=== PATIENT | female | born 1985 | race Caucasian/White ===

== ENCOUNTER → 2019-02-09 | Outpatient (CLI) | payer BC, SELFPAY ==
[2016-09-24 12:27] VITALS: BMI 24.7
[2019-02-19 16:41] LABS: HPV HC, High Risk Negative (Negative)
== END | disposition home or self-care (01) ==
LOC: LABSPEC 14:12
PROVIDERS: Visit Provider Obstetrics & Gynecology
DX: Z12.4 Encounter for screening for malignant neoplasm of cervix (principal)
CPT/HCPCS: 87624; 88175; G0145

== ENCOUNTER → 2020-05-24 11:56 | Outpatient (CLI) | payer BC, SELFPAY ==
[2016-09-24 12:27] VITALS: BMI 24.7
[2020-05-24 13:55] LABS: Absolute Lymphocyte Count 1.26 X10^3/uL (0.83-4.51); Absolute Neutrophil Count 5.2 X10^3/uL (2.0-7.7); Basophil# 0.04 X10^3/uL; Basophil% 0.6 % (0-1); Eosinophil# 0.02 X10^3/uL; Eosinophils% 0.3 % (0-5); Hematocrit 41.3 % (37-47); Hemoglobin 13.9 g/dL (12.0-15.0); Lymphocyte # 1.26 X10^3/ul (4.0); Lymphocyte % 17.9 % (19-41); Mean Corp Hgb Conc 33.7 g/dL (32-36); Mean Corpuscular Hgb 30.8 pg (27.0-32.0); Mean Corpuscular Volume 91.4 fL (81-99); Mean Platelet Vol. 9.9 fl (6.2-12.0); Monocyte# 0.52 X10^3/uL; Monocyte% 7.4 % (0-10); NRBC Flagged by Analyzer 0 % (0-5); Neutrophil # 5.18 X10^3/uL (2.7-7.7); Neutrophil % 73.7 % (47-70); Platelet Count 282 K/mm3 (150-450); RBC Distribution Width CV 12.4 % (11.6-14.6); RBC Distribution Width SD 41.8 fl (35.1-43.9); Red Blood Count 4.52 M/mm3 (4.2-5.4)
[2020-05-24 14:00] LABS: Color, Urine Yellow (Yellow); Glucose, Dipstick Normal (Normal); Ketone-Dipstick Negative (Negative); Leukocyte Esterase-Dipstick 500 /ul (Negative); Nitrite-Dipstick Negative (Negative); Occult Blood-Urine Negative /ul (Negative); Protein-Dipstick Negative (Negative); Urine Bilirubin Dipstick Negative (Negative); Urine Clarity Sl. Cloudy (Clear); Urine Urobilinogen Normal (Normal)
[2020-05-24 14:18] LABS: Amphetamine Urine VISTA NEGATIVE (<1000 ng/mL); Barbiturate Urine VISTA NEGATIVE (< 200 ng/mL); Benzodiazepine Urine VISTA NEGATIVE (< 200 ng/mL); Cocaine Urine VISTA NEGATIVE (< 300 ng/mL); Ecstacy Urine VISTA NEGATIVE (< 500 ng/mL); Methadone Urine VISTA NEGATIVE (< 300 ng/mL); PCP Urine VISTA NEGATIVE (< 25 ng/mL); THC Urine VISTA NEGATIVE (< 50 ng/mL); Vista UDS pH Range 6
[2020-05-24 14:44] LABS: HIV - WCH Non-Reactive (Nonreactive); Hepatitis B Surface Antigen Non-Reactive (Nonreactive); Hepatitis C Antibody Non-Reactive (Nonreactive)
[2020-05-25 01:34] LABS: Prenatal RPR NONREACTIVE (NONREACTIVE)
[2020-05-27 03:06] LABS: Chlamydia By Nucleic Acid AMP Negative (Negative)
[2020-05-27 14:05] LABS: Gonococcus By Nucleic Acid AMP Negative (Negative)
== END ==
PROVIDERS: Visit Provider Obstetrics & Gynecology
DX: Z11.3 Encounter for screening for infections with a predominantly sexual mode of transmission (principal)
CPT/HCPCS: 36415; 80307; 81002; 84443; 85025; 86703; 86762; 86803; 87340; 87491; 87591

== ENCOUNTER 2020-06-09 19:29 | Emergency (ER) | payer BC, SELFPAY ==
[2020-06-09 19:30] VITALS: BP 135/86; PULSE 76; RESP 14; TEMP 36.3; O2SAT 98; BMI 20.7
[2020-06-09 20:27] LABS: Absolute Lymphocyte Count 1.36 X10^3/uL (0.83-4.51); Absolute Neutrophil Count 10.1 X10^3/uL (2.0-7.7); Basophil# 0.03 X10^3/uL; Basophil% 0.2 % (0-1); Eosinophil# 0.01 X10^3/uL; Eosinophils% 0.1 % (0-5); Hematocrit 41.3 % (37-47); Hemoglobin 14.3 g/dL (12.0-15.0); Lymphocyte # 1.36 X10^3/ul (4.0); Lymphocyte % 11.3 % (19-41); Mean Corp Hgb Conc 34.6 g/dL (32-36); Mean Corpuscular Hgb 30.9 pg (27.0-32.0); Mean Corpuscular Volume 89.2 fL (81-99); Mean Platelet Vol. 9.5 fl (6.2-12.0); Monocyte# 0.58 X10^3/uL; Monocyte% 4.8 % (0-10); NRBC Flagged by Analyzer 0 % (0-5); Neutrophil # 10.05 X10^3/uL (2.7-7.7); Neutrophil % 83.3 % (47-70); Platelet Count 302 K/mm3 (150-450); RBC Distribution Width CV 12.2 % (11.6-14.6); RBC Distribution Width SD 39.8 fl (35.1-43.9); Red Blood Count 4.63 M/mm3 (4.2-5.4); White Blood Count 12.1 K/mm3 (4.4-11.0)
[2020-06-09 20:38] LABS: Anion Gap 7 (5-15); BUN 6 mg/dL (7-18); BUN/Creat Ratio 10.2 RATIO (10-20); Calcium,Total 9.2 mg/dL (8.5-10.1); Chloride 104 mmol/L (98-107); Creatinine, Serum 0.59 mg/dL (0.55-1.02); EST Glomerular Filtration Rate 122 mL/min (>60); Est Glom Filt Rate - Afr Amer 148 mL/min (>60); Estimated Creatinine Clearance 113.83 ml/min; Glucose 87 mg/dL (74-106); Potassium 3.4 mmol/L (3.5-5.1); Sodium Level 134 mmol/L (136-145)
[2020-06-09] MEDS: 0.9% Normal Saline 1,000 ML 999 ML IV (21:03)
[2020-06-09] MEDS: DiphenhydrAMINE 50 MG/ML Syringe 25 MG IV (21:03)
[2020-06-09] MEDS: Metoclopramide 10 MG/2 ML Vial IV (21:04)
--- NOTE | 2020-06-09 22:13 | ED.VISSUMM ---
- ER Visit Summary Date of Service: 06/09/20 Chief Complaint: Headache History of Present Illness: The patient is a 35 F who presents with a headache that began today. Patient states the pain is similar to prior migraines. Patient admits to some nausea and vomiting. Patient states she is unable to keep anything down. Patient also admits to some photophobia. Patient denies any fevers or chills. Patient admits to some numbness in her hands bilaterally but denies any weakness. Patient denies any visual changes or scotoma. Patient admits to subjective chills but denies any fevers. Patient is approximately 10 weeks . Physical Examination: Vital signs are stable. Patient is afebrile. Patient is in no acute distress. Oral mucosa is pink and moist. Neck is supple. Trachea is midline. There is no JVD noted. Heart was regular rate and rhythm. Lungs are clear and equal bilaterally. Abdomen is soft. Bowel sounds are normal. There is no tenderness. There is no rebound or guarding noted. Skin is warm dry. Cranial nerves II through XII are intact. There are no focal motor or sensory deficits noted. Extremities are intact. There is no calf tenderness or edema. Test Results: CBC and basic metabolic profile were obtained and were within normal limits. Emergency Department Course and Treatment: Patient was given IV fluids, Reglan, and Benadryl. Patient states she is feeling better. Patient was given a dose of Toradol. [id number] ultrasound was obtained. There is a single live intrauterine . There is good heart movement noted. Patient was reassured. Patient was instructed to rest in a dark quiet room. Patient was instructed to follow-up with her primary care physician and [facility] in 5 to 7 days. Patient understood and was agreeable with the plan. All questions were answered. Disposition: Discharge home Impression: 1. Migraine headache 2. Intrauterine This note was generated with [employer] dictation software. It may contain incorrect words, spelling, and punctuation that were not noted in review of the chart prior to signing ED Disposition - Plan for ED Patient: Disposition: Home or Assisted Living Diagnosis: Migraine headache, Instructions: ED, Migraine (Classical) Referrals: Care Physician,No Primary [Primary Care Provider] -
[2020-06-09] MEDS: Ketorolac 30 MG/ML Syringe IV (22:25)
== END 2020-06-09 22:35 | disposition home or self-care (01) ==
PROVIDERS: Emergency Provider Emergency Medicine
DX: G43.909 Migraine, unspecified, not intractable, without status migrainosus (principal); O99.351 Diseases of the nervous system complicating pregnancy, first trimester; Z3A.10 10 weeks gestation of pregnancy
CPT/HCPCS: 80048; 85025; 96374; 96375; 99282; J7030; A4216

== ENCOUNTER → 2020-10-10 10:41 | Outpatient (CLI) | payer BC, SELFPAY ==
[2020-10-10 13:47] LABS: Hematocrit 33.8 % (37-47); Hemoglobin 11.2 g/dL (12.0-15.0); Mean Corp Hgb Conc 33.1 g/dL (32-36); Mean Corpuscular Hgb 31.1 pg (27.0-32.0); Mean Corpuscular Volume 93.9 fL (81-99); Mean Platelet Vol. 9.7 fl (6.2-12.0); Platelet Count 233 K/mm3 (150-450); RBC Distribution Width CV 13.3 % (11.6-14.6); RBC Distribution Width SD 46.1 fl (35.1-43.9); White Blood Count 7.7 K/mm3 (4.4-11.0)
[2020-10-10 13:48] LABS: Glucose Challenge Gest 1H 50g 74 mg/dL (70-140)
== END ==
PROVIDERS: Visit Provider Student in an Organized Health Care Education/Training Program
DX: Z34.82 Encounter for supervision of other normal pregnancy, second trimester (principal)
CPT/HCPCS: 36415; 82950; 85027

== ENCOUNTER → 2020-12-12 13:34 | Outpatient (CLI) | payer BC, SELFPAY | PROVIDERS: Visit Provider Student in an Organized Health Care Education/Training Program | DX: Z36.85 Encounter for antenatal screening for Streptococcus B (principal) | CPT/HCPCS: 87081 ==

== ENCOUNTER → 2020-12-20 13:55 | Outpatient (CLI) | payer BC, SELFPAY | PROVIDERS: Referring Provider Student in an Organized Health Care Education/Training Program; Visit Provider Student in an Organized Health Care Education/Training Program | DX: Z03.818 Encounter for observation for suspected exposure to other biological agents ruled out (principal) | CPT/HCPCS: 87635; C9803; U0002 ==

== ENCOUNTER 2020-12-31 18:55 | Inpatient (IN) | payer BC, SELFPAY ==
[2020-12-31 19:08] VITALS: BMI 25.3
[2020-12-31 19:51] VITALS: BP 129/66; PULSE 101; PULSE 106; TEMP 36.9; O2SAT 98
[2020-12-31] MEDS: Lactated Ringers 1,000 ML 50 ML IV (19:55)
[2020-12-31 19:56] LABS: Absolute Lymphocyte Count 0.78 X10^3/uL (0.83-4.51); Absolute Neutrophil Count 7.7 X10^3/uL (2.0-7.7); Basophil# 0.03 X10^3/uL; Basophil% 0.3 % (0-1); Eosinophil# 0.05 X10^3/uL; Eosinophils% 0.5 % (0-5); Hematocrit 36.3 % (37-47); Hemoglobin 12.6 g/dL (12.0-15.0); Lymphocyte # 0.78 X10^3/ul (0.83-4.51); Lymphocyte % 8.5 % (19-41); Mean Corp Hgb Conc 34.7 g/dL (32-36); Mean Corpuscular Hgb 32.4 pg (27.0-32.0); Mean Corpuscular Volume 93.3 fL (81-99); Mean Platelet Vol. 10.3 fl (6.2-12.0); Monocyte# 0.62 X10^3/uL; Monocyte% 6.7 % (0-10); NRBC Flagged by Analyzer 0 % (0-5); Neutrophil # 7.69 X10^3/uL (2.7-7.7); Neutrophil % 83.3 % (47-70); Platelet Count 205 K/mm3 (150-450); RBC Distribution Width CV 13.4 % (11.6-14.6); RBC Distribution Width SD 46.1 fl (35.1-43.9); Red Blood Count 3.89 M/mm3 (4.2-5.4); White Blood Count 9.2 K/mm3 (4.4-11.0)
[2020-12-31] MEDS: miSOPROStol 25 MCG TABLET PO (20:02)
--- NOTE | 2020-12-31 20:19 | PCM.HP.BLA ---
History and Physical Date of Admission: 12/31/20 ACOG ANTEPARTUM RECORD - HISTORY AND PHYSICAL (12/31/2020) Name: DARCI SALAZAR History of this : This is a 35 year old [id number] presents at 39 wks + 1 days gestation for induction for oligohydramnios. OB Physician: Vicki Blanco MD 's Physician: Amado ...................................................................... : 1985 Age: 35 Address: [address] [place] [address] Phone: (H) [phone] (O) [phone] Insurance Carrier: alooma Zakazaka [facility] [id number] Emergency Contact: TRAVIS ROSS [phone] ...................................................................... Final HARLEEN: 01/06/21 By Ultrasound: 11 weeks 4 days PARITY: (G-Total Pregnancies P-Fullterm,Premature,Induced AB,Spont AB, Ectopics, Multiple,Living) HARLEEN CONFIRMATION: By LMP: 04/01/20 Initial Exam: 01/06/21 By First Ultrasound Exam: 01/06/21 Final HARLEEN: 01/06/21 OB PROBLEM LIST: ALLERGIC to LATEX! AMA Declines Quad Screen and cfDNA test Declines Carrier Screening IUGR Oligohydramnios with 3rd Past hx of anxiety. EPDS on 05/24/2020 = 5. Plans to breast feed Undecided about epidural VELAMENTOUS CORD INSERTION ALLERGIES: Latex ? itching Latex Itching of skin NKDA MEDICATIONS: 28 mg iron-800 mcg tablet One tablet by mouth once daily SOCIAL HISTORY: Smoking - used to smoke but quit Alcohol Use - denies drinking Diet - balanced Diet Lifestyle - Exercise - regular Employer - Stays at home Job Description - Illicit Drug Use - denies use of street drugs Sexual Activity - Residence - lives with Place of - [place], SONNY Spouse-Sig Other Name - LUIS Emily Spouse-Sig Other Occupation - [employer] Spouse-Sig Other Phone No - [phone] cell Children Name(s) - Josef Cruz () '14, Elio (SHM '17) PRIOR DELIVERY HISTORY DEL DATE GEST LAB WT LB WT OZ TYPE ANES LABOR TX 03 May 28 39 10 5 11 Vag Epidural No Oct 04 40 6 6 14 Vag Epidural No Jul 01 40 5 6 11 Vag Epidural No ANTEPARTUM FLOW CHART VISIT GE RTC FU F F NV U U DATE WK MD WKS HT PN HR M SS BP ED WT NV GL D EF ST __ ____ ___ __ __ ___ __ __ __ ___ __ __ __ ___ __ December JMW + + 114/60 sl 145 - - 11 May 38 CM 3 38 V U+ + 122/74 0 148 - - 1 50 -3 19 December 37 CM 1 37 V + + 118/76 sl 147 - - Nov 36 CM 1 36 V + + 122/70 sl 147 - - 20 Nov 35 CM 1 + + 122/70 0 144 ne ne Nov 34 CM 2 34 V + + 102/74 0 143 tr - 23 Oct 31 CM 2 + + 124/72 0 140 - - 09 Oct 29 CM 2 29 + + 112/68 0 138 - - Sep 27 CM 2 27 + + 104/68 0 136 ne ne Sep 09 SHM 4 24 + + 110/72 0 132 - - 29 Aug 05 SHM 4 + + 108/78 0 128 - - 02 Aug 01 SHM 4 + O 120/76 0 126 - - 04 Jun 28 SHM 4 + US 112/64 0 124 - - ANTEPARTUM NOTE(S): Dec 29 2020: Dec 26 2020: Dec 19 2020: Dec 12 2020: Dec 05 2020: Nov 28 2020: Informed of GBS and LARC at next visit Nov 07 2020: Oct 24 2020: Oct 10 2020: GCT today Sep 12 2020: see note Aug 15 2020: nausea better, possible varicose vein Jul 19 2020: see note Jun 21 2020: COMPREHENSIVE ANTEPARTUM NOTE(S): Dec 29 2020: Darci is here for NST following delay of labor induction by WP. Baby active. Some kicks can hurt. Feeling well. Disappointed in wait for L. NST explained and read as reactive by Dr CHARLES. SHIMA. Dec 26 2020: Cytotec IOL scheduled for 12/29/20. COVID test negative 12/20/20. Reporting runs of ctx's, then will stop. Good FM. No leaking flulid. No spotting. BPP 03/25. ROSANNA wnl. Dec 26 2020: 38/3w. FGR based on AC 6%tile. EFW increased to 11.6%tile. Delivery still indicated based on FGR with low AC. BPP 8/8 today with normal cord dopplers. Velamentous cord insertion, fundal. Resolved low lying placenta. Planned for induction 12/29. F/u 3w PP. CM Dec 19 2020: H taken to OB. tkg Dec 19 2020: Darci is here at 37.3 w gest for US and appt. Feeling well. Baby active. Eager for induction and baby. Some BH contr at home at int. Ring tight but minimal edema otherwise. DRC. Dec 19 2020: 37/3w visit. IUGR - BPP today 03/25 with normal cord dopplers. Will need BPP Friday. Same testing with growth next week 12/26. Planned IOL on 12/29. Velamentous cord insertion. Resolved low lying placenta. F/u 1w. CM Dec 12 2020: Darci is here for cord dopplers, BPP, PNV. BPP 03/25. Reporting decreased FM this morning. She would like to discuss a Tubal. GBS, LARC (declines) today. Per Dr. Aysha Chandler, Cytote Induction scheduled for 7 AM, December 29 by Shi. Consent signed. Induction literature given. Induction papers faxed to OB. Instructed to pre-register @ [facility], # provided. kbm Dec 12 2020: 36/3w. Velamentous cord insertion. IUGR EFW 6%, AC <3%. Cord dopplers normal today. Planned for induction of labor 38/6w. Cytotec. 12/29 AM. WOuld like BTL if she has c/s. F/u Friday BPP, next week BPP with cord dopplers. CM Dec 05 2020: Darci is here folloiwng US. States she is feeling well. Had good FM during US. Presently, no edema noted. No concerns today. Urine neg/neg. LSS Dec 05 2020: 35/3w visit. Velamentous cord insertion. IUGR: AC <3, EFW 6.4%tile. Cord dopplers done today and wnl. Will do twice weekly BPP, once weekly CD. Plan for induction 38w or sooner if cord dopplers are abnormal. F/u 1w CM Nov 28 2020: Darci is here for her PNV. Good FM. No edema present. Denies questions or concerns. GBS and LARC at next visit. MK Nov 28 2020: 34/3w visit. Velamentous cord insertion - BPP 03/25. Growth next week. Continue weekly BPPs. HC lagging on last growth. Declined MFM. F/u 2w CM Nov 07 2020: US to check placenta, growth and velamentous cord insertion. Nov 07 2020: 31/3w visit. Resolved previa. Velamentous cord insertion. Growth overall AGA, HC lagging by 1w, BPD by 3w. Similar in last US. Will start once weekly BPP. Growth in 4w. Pt declined MFM consult. States her prior babies have had small heads as well. CM Oct 24 2020: 29/3w visit. Velamentous cord insertion. Discussed again today, cord insertion was reviewed on US images and is fundal. Will plan for US next visit with TV to assess growth and placental positioning. f/u 2w. CM Oct 10 2020: Darci is here with SO following US. Also completed GCT today. Expressing concern with US results. Having good FM. Also, has noticed 2 buldging vericose veins posterior right knee. Does wear compression socks. Occ they do get warm and the area gets red. Presently are not painful. No edema noted. Urine neg/neg. LSS Oct 10 2020: 27/3w visit. Velamentous cord insertion/low lying placenta. Growth in4w. Discussed at length. Varicose vein right calf - discussed warning signs of VTE, continue wearing compression stockings. F/u 2w. cm Sep 12 2020: Darci is here for visit. She relates that she is having issues with nausea again. She has tried Unisom and Pepcid. The Pepcid seemed to help but she is taking Unisom at night and wonders if that is also helping. She is advised that the Pepcid may be helping more but can take the Unisom if she wants or just take the Pepcid for a week to see if this helps. Call if nausea persists. Encoura Sep 12 2020: Pt with questions and concerns about vasa previa after reading more about velamentous cord insertion. Reviewed her recent US findings with no evidence of vasa previa. Will plan repeat US at next visit to evaluated placenta, cord, growth, ROSANNA. PTL, ROM, FM precautions. Aug 15 2020: Darci is here with her SO for a PNV. Starting to feel FM. No edema. Nausea is continuing to get better. Reports chapped and dry lips are back and worse, wonders if she can get a referral to a instructor of spanish. Complains of bulge in 2 places behind her R knee that are slightly painful. She is worried these are varicose veins and would like them looked at. No other concerns expressed. MK Aug 15 2020: RLE varicosity present. Recommend compression stockings, ASA 81mg r/b reviewed, pt considering. US AGA, EFW 36.2%, sex unknown (to patient, knows), low lying placenta at 0.8cm from os with velamentous cord insertion. Reviewed increased risk for cord compression with associated growth restriction, risk for stillbirth, however, overall low risks. Plan growth, placentation US qmonth starting Jul 19 2020: Darci complains of off and on nausea persisting. She is stopped the Unisom and then restarted and wanting to make sure that is ok? Advised Unisom is fine to take. Reviewed medications for stomach upset. Mylanta, Pepcid also may help. Declines carrier and genetic screening testing. Encouraged Influenza vaccine. LMT Jun 22 2020: TELEHEALTH NOB VISIT, DURATION 30 MINUTES. Darci is a 35 year old with an HARLEEN of 01/06/2021, current GA is 11 w 5 d. She resides with her , LUIS, and their three children. All of her children were delivered by . Her last labor was induced d/t Oligohydramnios. Past history updated. Delivery at [facility] is planned, she is undecided about an epidural, and she will breastfeed. Darci Jun 21 2020: Darci is here for her PNV. Reports she doing well with no complaints. No edema present to day. Reports nausea has stopped 2 days ago. Medications and allergies reviewed today. LJW Jun 21 2020: US today c/w dates. HARLEEN 01/06/21. Nausea improving. c/o severe lip chapping. No cracks or fissues or erythema or flaking on exam - however chap stick applied. I recommend coconut oil or beeswax only with layer of Aquafor lip balm on top. Protein with each meal, Vitamin C and increase zinc for lip healing. She notes sx emerged in February when son was admitted to [facility] and she wore a REVIEW OF SYSTEMS: GENERAL - Denies fever, or chills SKIN - Denies rash, new skin lesions, or change in moles EYES - Denies blurred vision, or change in visual acuity EARS - Denies ear pain, or difficulty hearing NOSE - Denies nasal congestion, discharge, or bleeding MOUTH - Denies sore throat, or difficulty swallowing NECK - Denies pain or swelling RESPIRATORY - Denies shortness of breath, cough, wheezing CARDIOVASCULAR - Denies palpitations, chest pain, orthopnea, PND, peripheral edema, syncope or claudication GASTROINTESTINAL - Denies nausea, vomiting, diarrhea, constipation, Denies abdominal pain, melena and or bright red blood GENITOURINARY - Denies dysuria, frequency of urination, urgency, or hesitancy MUSCULOSKELETAL - Denies joint or muscle pain, or back pain NEUROLOGICAL - Denies localized numbness, weakness, or tingling PSYCHIATRIC - Denies depression, anxiety, substance abuse or suicide attempts ENDOCRINE - Denies heat or cold intolerance, weight loss or gain, increasing thirst HEMATO-IMMUNOLOGIC - Denies easy bruising, bleeding, oral ulcerations or recurrent infections GENETICS SCREENING: Age 35+ years: No Thalassemia: No Neural Tube Defect: No Down Syndrome: No DAYNE-SACHS: No Sickle Cell Disease: No Hemophilia: No Musc. Dystrophy: No Cystic Fibrosis: No-declines screening Mike Chorea: No Mental Retardation: No Fragile X: No Other genetic: No Other defects: No SABs/still births: No Drugs since LMP: No INFECTION HISTORY: High risk AIDS: No High risk Hepatitis: No Exposed to TB: No Exposed to Herpes: No Rash/viral illness since LMP: No History of STD: No Comments: + Chlamydia MENSTRUAL HISTORY: *Menses Amount/Duration: 5 daysMenses Regularity: RegularMenarche (Age Onset): 12* PAST SUMMARY: PARITY: 1. Total Pregnancies............ 4 2. Full Term Pregnancies........ 3 3. Premature.................... 0 4. Abortions - Induced.......... 0 5. Abortions - Spontaneous...... 0 6. Ectopics..................... 0 7. Multiple Births.............. 0 8. Living Children.............. 3 PAST #1: Date of :.................. 05/20/11 Gestation Weeks:................ 39 Length of labor(hours):......... 10 Sex:............................ F Weight-lbs:............... 5 Weight-oz:................ 11 Type of Delivery:............... Vag Type of Anesthesia:............. Epidural Place of Delivery:.............. [place] Treatment of Labor?:.... No Comment: PAST #2: Date of :.................. 07/04/14 Gestation Weeks:................ 40 Length of labor(hours):......... 5 Sex:............................ M Weight-lbs:............... 6 Weight-oz:................ 11 Type of Delivery:............... Vag Type of Anesthesia:............. Epidural Place of Delivery:.............. [place] Treatment of Labor?:.... No Comment: PAST #3: Date of :.................. 09/24/16 Gestation Weeks:................ 40 Length of labor(hours):......... 6 Sex:............................ M Weight-lbs:............... 6 Weight-oz:................ 14 Type of Delivery:............... Vag Type of Anesthesia:............. Epidural Place of Delivery:.............. [place] Treatment of Labor?:.... No Comment: IOL, OLIGOHYDRAMNIOS PHYSICAL EXAMINATION General Appearence: 35 yo female in no acute distress Vital Signs: AF, VSS Heart: RRR without rubs or gallops Lungs: CTA x 2 Breasts: deferred Abdomen: gravid Pelvis: Cervix: Presentation: cephalic Station: -2 Fetus: Size: AGA Movement: present Heart: present LAB TEST(S) ORDERED SINCE:04/11/20 05/27/2020 CHLAMYDIA/GC MONICA APTIMA 05/25/2020 RPR 05/24/2020 URINE DRUG SCREEN (VISTA) 05/24/2020 URINALYSIS, ROUTINE (DIPSTICK) 05/24/2020 THYROID STIM HORMONE (TSH) 05/24/2020 RUBELLA IGG 05/24/2020 T AND S-NO CHARGE W/PNP 05/24/2020 HIV - [facility] 05/24/2020 HEPATITIS C ANTIBODY 05/24/2020 HEPATITIS B SURFACE ANTIGEN 05/24/2020 CBC W/DIFF, AUTOMATED 12/31/2020 CBC W/DIFF, AUTOMATED 12/20/2020 COVID 19, MONICA [facility](RT COLLECT) 12/15/2020 RULE OUT BETA STREP (GRP. B) 10/10/2020 GLUCOSE CHALLENGE GEST 1H 50G 10/10/2020 CBC-COMPLETE BLOOD CNT NO DIFF == ==== Order Observation Description Value Ref_Range A* Site == ==== CBC W/DIFF, AUT NOTE MURRAY CBC W/DIFF, AUT WBC 9.2 K/mm3 4.4-11.0 ML CBC W/DIFF, AUT RBC 3.89 M/mm3 4.2-5.4 L ML CBC W/DIFF, AUT HGB 12.6 g/dL 12.0-15.0 ML CBC W/DIFF, AUT HCT 36.3 37-47 L ML CBC W/DIFF, AUT MCV 93.3 fL 81-99 ML CBC W/DIFF, AUT MCH 32.4 pg 27.0-32.0 H ML CBC W/DIFF, AUT MCHC 34.7 g/dL 32-36 ML CBC W/DIFF, AUT RDW CV 13.4 11.6-14.6 ML CBC W/DIFF, AUT RDW SD 46.1 fl 35.1-43.9 H ML CBC W/DIFF, AUT PLT 205 K/mm3 150-450 ML CBC W/DIFF, AUT MPV 10.3 fl 6.2-12.0 ML CBC W/DIFF, AUT NEUT% 83.3 47-70 H ML CBC W/DIFF, AUT LY% 8.5 19-41 L ML CBC W/DIFF, AUT MONO% 6.7 0-10 ML CBC W/DIFF, AUT EO% 0.5 0-5 ML CBC W/DIFF, AUT BASO% 0.3 0-1 ML CBC W/DIFF, AUT IG% 0.700 0.0-0.9 ML IG% - Immature Granulocytes (promyelocytes, myelocytes and metamyelocytes) > 1% indicates that a LEFT SHIFT is Present. CBC W/DIFF, AUT ABSOLUTE NEUT 7.7 X10 3/uL 2.0-7.7 ML CBC W/DIFF, AUT ABSOLUTE LYMPH 0.78 X10 3/uL 0.83-4.51 L ML CBC W/DIFF, AUT NUCLEATED RBC 0 0-5 ML COVID 19, MONICA NOTE MURRAY COVID 19, MONICA COVID-19,MONICA Not Detected Not Detect ML Normal Reference Range: Not Detected Method:(RT-PCR) real-time reverse transcriptase PCR [employer] Instrument *The Food and Drug Administration (FDA) has issued an Emergency Use Authorization (EAU) for the 6APT SARS-CoV-2 Assay for the rapid detection of the virus that causes COVID-19. This test has been validated, but the FDAs independent review of this validation is pending. *Negative results do not preclude infection and should not be used as the sole basis for treatment or patient management. Optimum specimen types and timing for peak viral levels during infections caused by SARS-CoV-2 have not been determined. Collection of multiple specimens from the same patient may be necessary to detect the virus. The possibility of a false negative result should be considered if the patient has clinical presentation or has had recent exposure. RULE OUT BETA S NOTE MURRAY GLUCOSE CHALLEN NOTE MURRAY GLUCOSE CHALLEN GLU GEST 50G 1H 74 mg/dL 70-140 ML CBC-COMPLETE BL NOTE MURRAY CBC-COMPLETE BL WBC 7.7 K/mm3 4.4-11.0 ML CBC-COMPLETE BL RBC 3.60 M/mm3 4.2-5.4 L ML CBC-COMPLETE BL HGB 11.2 g/dL 12.0-15.0 L ML CBC-COMPLETE BL HCT 33.8 37-47 L ML CBC-COMPLETE BL MCV 93.9 fL 81-99 ML CBC-COMPLETE BL MCH 31.1 pg 27.0-32.0 ML CBC-COMPLETE BL MCHC 33.1 g/dL 32-36 ML CBC-COMPLETE BL RDW CV 13.3 11.6-14.6 ML CBC-COMPLETE BL RDW SD 46.1 fl 35.1-43.9 H ML CBC-COMPLETE BL PLT 233 K/mm3 150-450 ML CBC-COMPLETE BL MPV 9.7 fl 6.2-12.0 ML CHLAMYDIA/GC NA NOTE MURRAY CHLAMYDIA/GC NA CHLAMY,NUC ACID Negative Negative LC CHLAMYDIA/GC NA GC BY NUC ACID Negative Negative LC Performed at: = - [facility] [id number] Spare Hand: Brenna Henao MD, Phone: [phone] RPR NOTE MURRAY RPR RPR NONREACTIVE NONREACTIVE ML Reason for Type AND Screen/Red Cells: Surgery? [facility]~[address] [place], [address]~ T AND BLOOD TYPE GEL A POSITIVE N ML T AND AB SCREEN GEL NEGATIVE N ML HEPATITIS C ANT NOTE MURRAY HEPATITIS C ANT HEPATITIS C AB Non-Reactive Nonreactive ML Non Reactive: < 0.8 Equivocal: >/= 0.8 to < 1.0 Reactive: >/= 1.0 The CDC recommends that a reactive/equivocal HCV antibody result be followed up by the HCV Nucleic Acid Amplification test ([id number]) HEPATITIS B MOLLY NOTE MURRAY HEPATITIS B MOLLY HEPB SURFACE AG Non-Reactive Nonreactive ML RUBELLA IGG NOTE MURRAY RUBELLA IGG RUBELLA IGG 203.0 IU/mL ML Antibody results Interpretation of Immune Status < 5 IU/ml Presumed Non-immune 5 - < 10 IU/ml Equivocal > or = 10 IU/ml Presumed Immune HIV - [facility] NOTE MURRAY HIV - [facility] HIV - [facility] Non-Reactive Nonreactive ML URINE DRUG SCRE NOTE MURRAY URINE DRUG SCRE TO BE CONFIRMED ML CONFIRMATORY TESTING FOR ALL POSITIVE URINE DRUG SCREEN RESULTS WILL ONLY BE SENT OUT UPON PHYSICIAN ORDER. VISTA Urine Drug Screen methods provide only preliminary analytical test results. A more specific alternate chemical method must be used in order to obtain a confirmed analytical result. Gas chromatography/mass spectrometery (GC/MS) is the preferred confirmatory method. Clinical consideration and professional judgement should be applied to any drug of abuse test result, particularly when preliminary positive results are used. URINE TCA TESTING MUST BE ORDERED SEPARATELY. USE TEST MNEMONIC: UTCA URINE DRUG SCRE VISTA UDS PH 6 ML URINE DRUG SCRE AMPHETAMINES NEGATIVE <1000 ng/mL ML URINE DRUG SCRE BARBITIURATES NEGATIVE < 200 ng/mL ML URINE DRUG SCRE BENZODIAZIPINE NEGATIVE < 200 ng/mL ML URINE DRUG SCRE COCAINE NEGATIVE < 300 ng/mL ML URINE DRUG SCRE ECSTACY NEGATIVE < 500 ng/mL ML URINE DRUG SCRE METHADONE NEGATIVE < 300 ng/mL ML URINE DRUG SCRE OPIATES NEGATIVE < 300 ng/mL ML URINE DRUG SCRE PCP NEGATIVE < 25 ng/mL ML URINE DRUG SCRE THC NEGATIVE < 50 ng/mL ML THYROID STIM HO NOTE MURRAY THYROID STIM HO TSH 2.20 uIU/mL 0.358-3.74 ML URINALYSIS, ROU NOTE MURRAY URINALYSIS, ROU COLOR Yellow Yellow ML URINALYSIS, ROU CLARITY Sl. Cloudy Clear ML URINALYSIS, ROU GLUCOSE, UR Normal mg/dl Normal ML URINALYSIS, ROU BILIRUBIN URINE Negative mg/dL Negative ML URINALYSIS, ROU KETONE UR Negative mg/dl Negative ML URINALYSIS, ROU SP.GR. DIPSTX 1.010 1.002-1.030 ML URINALYSIS, ROU PH UR 7.0 5.0 - 8.0 ML URINALYSIS, ROU PROT DIPSTX Negative mg/dl Negative ML URINALYSIS, ROU UROBILI Normal mg/dl Normal ML URINALYSIS, ROU NITRITE UR Negative Negative ML URINALYSIS, ROU OCCULT BLOOD-UR Negative /ul Negative ML URINALYSIS, ROU LEUK ESTERASE 500 /ul Negative H ML CBC W/DIFF, AUT NOTE MURRAY CBC W/DIFF, AUT WBC 7.0 K/mm3 4.4-11.0 ML CBC W/DIFF, AUT RBC 4.52 M/mm3 4.2-5.4 ML CBC W/DIFF, AUT HGB 13.9 g/dL 12.0-15.0 ML CBC W/DIFF, AUT HCT 41.3 % 37-47 ML CBC W/DIFF, AUT MCV 91.4 fL 81-99 ML CBC W/DIFF, AUT MCH 30.8 pg 27.0-32.0 ML CBC W/DIFF, AUT MCHC 33.7 g/dL 32-36 ML CBC W/DIFF, AUT RDW CV 12.4 % 11.6-14.6 ML CBC W/DIFF, AUT RDW SD 41.8 fl 35.1-43.9 ML CBC W/DIFF, AUT PLT 282 K/mm3 150-450 ML CBC W/DIFF, AUT MPV 9.9 fl 6.2-12.0 ML CBC W/DIFF, AUT NEUT% 73.7 % 47-70 H ML CBC W/DIFF, AUT LY% 17.9 % 19-41 L ML CBC W/DIFF, AUT MONO% 7.4 % 0-10 ML CBC W/DIFF, AUT EO% 0.3 % 0-5 ML CBC W/DIFF, AUT BASO% 0.6 % 0-1 ML CBC W/DIFF, AUT IM GRAN % 0.100 % 0.0-0.9 ML IG% - Immature Granulocytes (promyelocytes, myelocytes and metamyelocytes) > 1% indicates that a LEFT SHIFT is Present. CBC W/DIFF, AUT ABSOLUTE NEUT 5.2 X10 3/uL 2.0-7.7 ML CBC W/DIFF, AUT ABSOLUTE LYMPH 1.26 X10 3/uL 0.83-4.51 ML CBC W/DIFF, AUT NRBC, FLAGGED 0 % 0-5 ML Group B Beta Streptococcus is not isolated. == ==== Impression /Plan: 39 wks + 1 days intrauterine with oligohydramnios for cytotec induction. Preparations in progress for delivery.
[2020-12-31 23:58] VITALS: BP 121/58; PULSE 77
[2021-01-01] VITALS (62 sets, daily range): BP systolic 88–133; BP diastolic 50–84; PULSE 76–154; RESP 16; TEMP 36.3–37.2; O2SAT 98–100
[2021-01-01] MEDS: miSOPROStol 25 MCG TABLET PO ×2 (00:08→04:17)
[2021-01-01] MEDS: Oxytocin 30 units/NS 500 ml 30 UNITS/500 ML IV.SOLN IV (08:20)
[2021-01-01] MEDS: Lactated Ringers 500 ML 999 ML IV (09:05)
[2021-01-01] MEDS: Lactated Ringers 1,000 ML 200 ML IV (09:15)
[2021-01-01] MEDS: fentaNYL-bupivacaine (epidural) 100 ML BAG EPIDURAL (10:02)
[2021-01-01] MEDS: Oxytocin 30 units/NS 500 ml 30 UNITS/500 ML IV.SOLN 999 UNITS IV (12:14)
--- NOTE | 2021-01-01 12:21 | EX.PCM.OBRPT ---
Assessment & Plan (1) 40 weeks gestation of : Maternal Data Information Final HARLEEN: 01/06/21 Gestational age: 39 weeks 1 day gestation Vaginal Delivery Maternal Presentation Maternal Presentation: Elective Induction Type of Induction: Pitocin, Amniotomy and Cytotec Medical Reason for Induction: - (Velamentous cord insertion) Operative Information Date of Procedure: 01/01/21 Pre-Operative Diagnosis: IUP Post-Operative Diagnosis: IUP Surgery / Procedure Performed: Spontaneous Vaginal Delivery Type of Anesthesia: Epidural Estimated Blood Loss: 350 cc Fluids Replaced: Crystalloid Findings Description of Procedure: Spontaneous vaginal delivery of a viable female with Apgars of 8/9 from an occiput anterior presentation with clear amniotic fluid and normal three-vessel placenta. No episiotomy. No laceration. Sponges okay. Delivery physician: Ashok Camacho MD. Presentation: Vertex Amniotic Membrane Rupture Type: Artificial Amniotic Fluid Description: Clear Placental Delivery Description: Spontaneous Placenta Disposition: [facility] Cord Vessel Description: 3 Vessels Cord Entanglement: None Infant A Gender: Female (1 minute): 8 (5 minute): 9 Post Vaginal Delivery Medications Given After Delivery: IV Pitocin Episiotomy Description: None Laceration: None Complication Complications: None
--- NOTE | 2021-01-01 12:25 | PCM.DC ---
Discharge Instructions Diet Discharge Diet: No restrictions Activity Discharge Activity: May Shower and May Take a Tub Bath May resume sexual activity in: 4-6 weeks Additional Activity Instructions:: Nothing in the vagina for 4-6 weeks. You may return to work/school in 6 weeks. Dressing / Incision Call your doctor if you observe: Inability to urinate, Inability to have a bowel movement and Using more than one pad per hour Follow Up Care Please Follow Up With: Ashok Camacho MD When: Call [phone] to make an appointment with your doctor in 6 weeks. Test Results: Test results from this visit will be discussed in further detail at your follow-up appointment, if applicable. Discharge Plan Admission Admit Date/Time: 12/31/20 18:55 Primary Reason for Your Visit: Vaginal Delivery Attending Provider: Ashok Camacho Primary Care Provider: Care Physician,Sheila Primary Discharge Orders/Prescriptions Prescriptions: Continued Prenatabs FA 1 TABLET tablet 1 tab PO DAILY RF: 0 Referrals / Follow Up: Care Physician,No Primary [Primary Care Provider] - Disposition Disposition (needs filled in before D/C Order can be placed): Home, self care
[2021-01-01] MEDS: Oxytocin 30 units/NS 500 ml 30 UNITS/500 ML IV.SOLN 167 UNITS IV (12:50)
[2021-01-01] MEDS: Acetaminophen 500 MG Tablet 1000 MG PO (22:03)
[2021-01-02 04:01] VITALS: BP 96/64; PULSE 71; RESP 14; TEMP 36.2
[2021-01-02 08:17] VITALS: BP 91/64; PULSE 81; RESP 16; TEMP 36.2; O2SAT 100
--- NOTE | 2021-01-02 08:33 | PCM.PN.OB ---
Subjective Subjective Patient without complaints. Breast-feeding going well. Wants to go home today baby is able to go. Objective Data Objective Data Vital Signs: Vital Signs Temp Pulse Resp BP Pulse Ox 97.2 F L 81 16 91/64 100 01/02/21 08:17 01/02/21 08:17 01/02/21 08:17 01/02/21 08:17 01/02/21 08:17 Oxygen Delivery Method Room Air Weight: 147 lb 9.6 oz Body Mass Index (BMI) 25.3 Intake & Output: Intake and Output for Last 24 Hours 12/31/20 01/01/21 01/02/21 23:59 23:59 23:59 Intake Total 4269.20 / 4269.20 Output Total 1800 / 1800 Balance 2469.20 / 2469.20 Lab / Micro Data Result Diagrams: 12/31/20 19:25 Assessment & Plan (1) 40 weeks gestation of : PLAN: Doing well day #1 status post routine spontaneous vaginal delivery. Will discharge to home with routine instructions.
[2021-01-02 14:00] VITALS: BP 113/65; PULSE 77; RESP 16; TEMP 36.2; O2SAT 100
== END 2021-01-02 14:20 | disposition home or self-care (01) | DRG 807 ==
PROVIDERS: Admitting Provider Obstetrics & Gynecology; Visit Provider Obstetrics & Gynecology
DX: O41.03X0 Oligohydramnios, third trimester, not applicable or unspecified (principal); Z37.0 Single live birth; Z3A.39 39 weeks gestation of pregnancy; O43.123 Velamentous insertion of umbilical cord, third trimester; Z87.891 Personal history of nicotine dependence; O36.5930 Maternal care for other known or suspected poor fetal growth, third trimester, not applicable or unspecified
CPT/HCPCS: 59025; 59050; 85025; 86850; 86900; 86901; 99218; J7120; G0378